=== PATIENT | female | born 1990 | race African-American/Black ===

== ENCOUNTER 2018-04-17 02:41 | Emergency (ER) | payer BC, OTHER ==
[2018-04-17 03:07] VITALS: BP 128/87; PULSE 69; TEMP 98.5; BMI 22.8
--- NOTE | 2018-04-17 03:16 | PDOC ---
History of Present Illness - General Chief Complaint: Foreign Body (FB) Stated Complaint: FOREIGN OBJECT IN VAGINA Time Seen by Provider: 04/17/18 02:57 History Source: Patient Exam Limitations: No Limitations - History of Present Illness Initial Comments: 04/17/18 03:13 27-year-old female without past medical history of a D&C February 2018 presents emergency Department with foul-smelling vaginal odor and possible retained tampon. Patient states she placed a tampon 04/13 and when she went to retrieve the tampon was unable to find the string and did not remove it. Patient states she has had protected vaginal intercourse with one male since been unable to find the tampon and is currently requesting STD testing for gonorrhea and chlamydia. She denies fevers, chills, abdominal pain. Past History - Past Medical History Allergies/Adverse Reactions: Allergies Allergy/AdvReac Type Severity Reaction Status Date / Time No Known Allergies Allergy Verified 04/17/18 03:02 Home Medications: Ambulatory Orders Ferrous Sulfate [Feosol] 325 mg PO BID #1 ud 09/25/13 Ibuprofen [Motrin -] 600 mg PO Q4H PRN #1 tablet 09/25/13 Vitamins (Sjr) - 1 tab PO DAILY #1 tablet 09/25/13 Cephalexin Monohydrate [Keflex -] 500 mg PO BID #14 capsule 04/17/18 Asthma: No Cancer: No Cardiac Disorders: No Diabetes: No HTN: No Seizures: No Thyroid Disease: No - Suicide/Smoking/Psychosocial Hx Smoking History: Never smoked Have you smoked in the past 12 months: No Information on smoking cessation initiated: No Hx Alcohol Use: No Drug/Substance Use Hx: No Hx Substance Use Treatment: No Review of Systems - Review of Systems Able to Perform ROS?: Yes Is the patient limited Citizen Of [place] proficient: No Constitutional: No: Symptoms Reported HEENTM: No: Symptoms Reported Respiratory: No: Symptoms reported Cardiac (ROS): No: Symptoms Reported ABD/GI: No: Symptoms Reported : Yes: See HPI Musculoskeletal: No: Symptoms Reported Integumentary: No: Symptoms Reported Neurological: No: Symptoms reported Endocrine: No: Symptoms Reported Hematologic/Lymphatic: No: Symptoms Reported *Physical Exam - Vital Signs Last Vital Signs Temp Pulse Resp BP Pulse Ox 98.5 F 69 20 128/87 99 04/17/18 03:06 04/17/18 03:06 04/17/18 03:06 04/17/18 03:06 04/17/18 03:06 - Physical Exam General Appearance: Yes: Appropriately Dressed. No: Apparent Distress HEENT: positive: Normal ENT Inspection Respiratory/Chest: positive: Lungs Clear, Normal Breath Sounds. negative: Respiratory Distress, Accessory Muscle Use Cardiovascular: positive: Regular Rhythm, Regular Rate. negative: Murmur Female Pelvic Exam: positive: normal external exam, normal adnexa, discharge ( milky green). negative: CMT, adnexal tenderness, vaginal bleeding Gastrointestinal/Abdominal: positive: Normal Bowel Sounds, Soft. negative: Tender Integumentary: positive: Normal Color, Dry, Warm Medical Decision Making - Medical Decision Making 04/17/18 03:33 A/P: 27-year-old woman with retained tampon Vaginal exam performed with ALLEN Livingston in the room as softwood faller Palpation of soft mass noted Speculum exam reveals retained tampon noted above cervix Tampon removal Lupillo forceps without incident Cervix is pink and healthy appearing No rashes. Patient is afebrile While patient does have retained tampon for greater than 3 days, physical exam is not consistent with toxic shock syndrome. While in has been explained to the patient that no further intervention is needed after removal of the foreign body, patient is requesting STD testing at this time. UA, Urine preg, urine cx, GC 04/17/18 04:10 UA is positive for 3+ leuk esterase, 1+ protein, 1+ blood. This is likely from retained tampon that has been removed. The results of that explained to the patient who wishes for treatment of UTI at this time. *DC/Admit/Observation/Transfer Diagnosis at time of Disposition: Foreign body in vagina Qualifiers: Encounter type: initial encounter Qualified Code(s): T19.2XXA - Foreign body in vulva and vagina, initial encounter - Discharge Dispostion Disposition: HOME Condition at time of disposition: Fair Decision to Admit order: No - Prescriptions Prescriptions: Cephalexin Monohydrate [Keflex -] 500 mg PO BID #14 capsule - Referrals Referrals: Iva Prince [Primary Care Provider] - - Patient Instructions Printed Discharge Instructions: DI for Foreign Body in Vagina-Adult Additional Instructions: Rest, drink lots of fluids: Teas, water, soups Avoid contact with others until fevers and symptoms resolved Lots of handwashing and good hygiene Continue [id number] medications for symptomatic relief Tylenol or Motrin for fever and pain Continue all of antibiotics until completed The gonorrhea and chlamydia testing will not be completed for the next few days. You may call [phone] and leave message for return phone call with lab results. Be sure to be clear with your name, birthdate, and phone number Always use condoms with the partners Followup with [facility] MACHINE OPERATOR or PMD in one week for reevaluation and retesting. Return to emergency department for worsened symptoms, fevers, dehydration - Post Discharge Activity
[2018-04-17 03:57] LABS: URINE APPEARANCE CLOUDY; URINE BILIRUBIN NEGATIVE (<2.0 mg/dL); URINE COLOR DKYELLOW; URINE GLUCOSE (UA) NEGATIVE (NEGATIVE); URINE KETONE NEGATIVE (NEGATIVE); URINE LEUK ESTERASE 3+ (NEGATIVE); URINE NITRITE NEGATIVE (NEGATIVE); URINE PROTEIN 1+ (NEGATIVE); URINE UROBILINOGEN NEGATIVE mg/dL (0.2-1.0)
[2018-04-17 04:07] LABS: EPI CELLS MANY /HPF (FEW); URINE MUCUS MANY
== END 2018-04-17 04:35 | disposition home or self-care (01) ==
LOC: JER 02:41
DX: T19.2XXA Foreign body in vulva and vagina, initial encounter (principal); N39.0 Urinary tract infection, site not specified; X58.XXXA Exposure to other specified factors, initial encounter; Y93.89 Activity, other specified; Y92.038 Other place in apartment as the place of occurrence of the external cause; Y99.8 Other external cause status
CPT/HCPCS: 36415; 81003; 81015; 84703; 87086; 87491; 87591; 99281-25

== ENCOUNTER 2019-04-13 16:30 | Inpatient (IN) | payer OTHER | END 2019-04-16 11:55 | disposition home or self-care (01) | LOC: JLDR 16:30 → J3W 04-14 09:16 ==

== ENCOUNTER 2021-09-01 08:17 | Emergency (ER) | payer OTHER ==
[2021-09-01 08:27] VITALS: BP 124/81; PULSE 64; TEMP 98; BMI 30.7
[2021-09-01] MEDS ORDERED: TETRACAINE 0.5% OPHTH SOLN 2 ML BOTTLE ONE (08:57)
[2021-09-01] MEDS ORDERED: FLUORESCEIN NA 1 EA STRIP ONE (08:57)
[2021-09-01] MEDS ORDERED: KETOROLAC TROMETHAMINE 30 MG/1 ML VIAL IM ONE (09:05)
[2021-09-01] MEDS ORDERED: ERYTHROMYCIN 0.5% OPHTHALMIC OINTMENT 3.5 GM TUBE OS ONE (09:05)
[2021-09-01] MEDS ORDERED: ERYTHROMYCIN 0.5% OPHTHALMIC OINTMENT 3.5 GM TUBE ONE (09:11)
[2021-09-01] MEDS ORDERED: KETOROLAC TROMETHAMINE 30 MG/1 ML VIAL ONE (09:11)
== END 2021-09-01 09:59 | disposition home or self-care (01) ==
LOC: JERFT 08:17
PROC: 3E023GC Introduction of Other Therapeutic Substance into Muscle, Percutaneous Approach (ICD-10-PCS; principal; 2021-09-01)
DX: S05.02XA Injury of conjunctiva and corneal abrasion without foreign body, left eye, initial encounter (principal); W50.0XXA Accidental hit or strike by another person, initial encounter
CPT/HCPCS: 99284-25